=== PATIENT | female | born 2005 | race African-American/Black ===

== ENCOUNTER 2024-05-02 13:36 | Emergency (ER) | payer MEDICAID ==
[~2024-05-02] VITALS: Ht 175.3 cm; Wt 64.0 kg
[2024-05-02 13:43] VITALS: O2SAT 99
[2024-05-02 15:17] LABS: BASOPHILS % 0.6 % (0.0-2.0); EOSINOPHILS % 0.8 % (0.0-5.0); HEMOGLOBIN. 12.9 g/dL (12.0-16.0); LYMPHOCYTES % 28.3 % (20.0-50.0); MEAN CORPUSCULAR HEMOGLOBIN 28.3 pg (28.0-32.0); MEAN CORPUSCULAR HGB CONC 33.1 g/dL (31.0-37.0); MEAN CORPUSCULAR VOLUME 85.7 fL (81.0-99.0); MEAN PLATELET VOLUME 8.7 fl (7.4-10.4); MONOCYTES % 7.4 % (2.0-8.0); NEUTROPHILS % 62.9 % (40.0-76.0); PLATELET 295 x1000/uL (130-400); RED BLOOD CELL COUNT 4.55 mill/uL (4.2-5.4); RED CELL DISTRIBUTION WIDTH 13.3 % (11.6-14.6); WHITE BLOOD COUNT 3.7 x1000/uL (4.5-11.0)
[2024-05-02 15:22] LABS: CHLORIDE 105 mEq/L (98-107); POTASSIUM 4.1 mEq/L (3.5-5.1); SODIUM 138 mEq/L (136-145)
[2024-05-02 15:23] LABS: CARBON DIOXIDE 30 mEq/L (21-32)
[2024-05-02 15:24] LABS: CALCIUM 9.8 mg/dL (8.7-10.4)
[2024-05-02 15:28] LABS: CREATININE 1.1 mg/dL (0.6-1.0)
[2024-05-02 15:29] LABS: GLUCOSE 100 mg/dL (70-105); UREA NITROGEN BLOOD 7 mg/dL (9-23)
[2024-05-02 15:30] LABS: ETHANOL BLOOD < 10 mg/dL (<10)
[2024-05-02 15:32] LABS: HCG SCREEN NEGATIVE
[2024-05-02 18:02] VITALS: BP 115/71; PULSE 88; RESP 16; TEMP 36.83628; O2SAT 99
== END 2024-05-02 18:03 | disposition home or self-care (01) ==
LOC: ER 13:36
DX: F41.0 Panic disorder [episodic paroxysmal anxiety] (principal); Z98.890 Other specified postprocedural states
CPT/HCPCS: 36415; 80048; 80320; 84703; 85025; 99284; G0480

== ENCOUNTER 2024-05-06 12:19 | Emergency (ER) | payer MEDICAID ==
[~2024-05-06] VITALS: Ht 175.3 cm; Wt 100.0 kg
[2024-05-06 12:30] VITALS: BP 120/64; PULSE 66; RESP 18; TEMP 98.1; O2SAT 99
== END 2024-05-06 18:56 | disposition home or self-care (01) ==
LOC: ER 12:19
DX: R55 Syncope and collapse (principal); F41.9 Anxiety disorder, unspecified
CPT/HCPCS: 99281

== ENCOUNTER 2025-03-05 17:35 | Emergency (ER) | payer MEDICAID ==
[~2025-03-05] VITALS: Ht 177.8 cm; Wt 105.0 kg
[2025-03-05 17:56] VITALS: O2SAT 97
[2025-03-05] MEDS ORDERED: DEXAMETHASONE 10 MG/ML VIAL IV ONE (18:30)
[2025-03-05] MEDS ORDERED: SUMATRIPTAN SUCCINATE 6MG/0.5ML VIAL SUBCUT ONE (18:30)
[2025-03-05] MEDS ORDERED: DIPHENHYDRAMINE 50MG/ML VIAL IV ONE (18:30)
[2025-03-05] MEDS: PROCHLORPERAZINE 10MG/2ML VIAL IV ONE (18:30)
[2025-03-05] MEDS ORDERED: KETOROLAC 30MG/ML VIAL IV ONE (18:30)
[2025-03-05] MEDS: DEXAMETHASONE 10 MG/ML VIAL IV SCH (20:31)
[2025-03-05] MEDS: KETOROLAC 30MG/ML VIAL IV SCH (20:31)
[2025-03-05] MEDS: DIPHENHYDRAMINE 50MG/ML VIAL IV SCH (20:32)
[2025-03-05] MEDS: SUMATRIPTAN SUCCINATE 6MG/0.5ML VIAL SUBCUT SCH (20:32)
[2025-03-05] MEDS ORDERED: IBUP-2029 MT (21:39)
[2025-03-05] MEDS ORDERED: [UNRECOGNIZED DRUG - CODE] MC (21:39)
[2025-03-05 21:47] VITALS: BP 135/76; PULSE 75; RESP 18; TEMP 36.7; O2SAT 97
== END 2025-03-05 21:50 | disposition home or self-care (01) ==
LOC: ER 17:35
DX: G43.909 Migraine, unspecified, not intractable, without status migrainosus (principal); F41.9 Anxiety disorder, unspecified; Z79.899 Other long term (current) drug therapy
CPT/HCPCS: 99284; 96374; 96375; 96372; J1885; J1100; J1200; J0780; J3030